=== PATIENT | male | born 1945 | race African-American/Black ===

== ENCOUNTER 2023-08-13 06:08 | Observation (INO) | payer OTHER, MEDICARE ==
[2023-08-13 06:48] LABS: BASO % 1.2 % (0-2.0); HEMATOCRIT 36.2 % (35.4-49); HEMOGLOBIN 11.9 GM/dL (11.7-16.9); LYMPH % 36.4 % (8-40); MCH 30.9 pg (25.7-33.7); MCHC 32.8 g/dl (32.0-35.9); MEAN PLT VOLUME 7.3 fl (7.5-11.1); MONO % 10.4 % (3.8-10.2); PLATELET COUNT 194 10^3/uL (134-434); RBC 3.85 M/mm3 (4.00-5.60); RDW 14.4 % (11.9-15.9)
[2023-08-13] MEDS ORDERED: FAMOTIDINE 20 MG/50 ML IVPB 20 MG/50 ML MG IVPB ONE (07:12)
[2023-08-13] MEDS ORDERED: ACETAMINOPHEN 1000 MG/100 ML BAG IVPB ONE (07:12)
[2023-08-13] MEDS ORDERED: MAG HYDROX/AL HYDROX/SIMETH -MYLANTA- ORAL SUSPENSION PO ONE (07:12)
[2023-08-13 07:13] LABS: POTASSIUM 4.7 mmol/L (3.5-5.1)
[2023-08-13 07:15] LABS: ALBUMIN 3.2 g/dl (3.4-5.0); BLOOD UREA NITROGEN 18.1 mg/dL (7-18); CALCIUM 8.3 mg/dL (8.5-10.1)
[2023-08-13] MEDS ORDERED: ONDANSETRON 4 MG/2 ML VIAL IVPUSH ONE (07:16)
[2023-08-13 07:19] LABS: CREATININE 1.1 mg/dL (0.55-1.3)
[2023-08-13 07:21] LABS: BILIRUBIN,TOTAL 0.4 mg/dL (0.2-1)
[2023-08-13] MEDS ORDERED: MAG HYDROX/AL HYDROX/SIMETH 30 ML UNIT-DOSE CUP ONE (07:21)
[2023-08-13] MEDS ORDERED: ACETAMINOPHEN INJECTION 100 ML IVPB ONE (07:21)
[2023-08-13] MEDS ORDERED: ONDANSETRON 4 MG/2 ML VIAL ONE (07:22)
[2023-08-13] MEDS ORDERED: FAMOTIDINE 10 MG/ML VIAL IVPB ONE (07:22)
[2023-08-13 07:24] LABS: N-TERMINAL BNP 262.2 pg/ml (5-450)
[2023-08-13 07:27] LABS: INR 1.07 (0.83-1.09); PROTHROMBIN TIME (PATIENT) 12.4 SEC (9.7-13.0)
[2023-08-13] MEDS ORDERED: PANTOPRAZOLE 40 MG TABLET PO SCH (11:45)
[2023-08-13] MEDS ORDERED: PANTOPRAZOLE 40 MG TABLET PO ONE (12:52)
[2023-08-13] MEDS ORDERED: CLOPIDOGREL BISULFATE 75 MG TABLET (FP) ONE (12:53)
[2023-08-13] MEDS ORDERED: metoPROLOL SUCCINATE 25 MG TAB.SR.24H (FP) PO ONE (12:53)
[2023-08-13] MEDS ORDERED: SERTRALINE HCL 50 MG TABLET (FP) ONE (12:53)
[2023-08-13] MEDS ORDERED: ASPIRIN 325 MG TABLET ONE (12:54)
[2023-08-13] MEDS: CLOPIDOGREL BISULFATE 75 MG TABLET (FP) PO SCH (13:11)
[2023-08-13] MEDS: SERTRALINE HCL 25 MG TABLET (FP) PO SCH (13:11)
[2023-08-13] MEDS: PANTOPRAZOLE 40 MG TABLET PO SCH (13:11)
[2023-08-13] MEDS: predniSONE 5 MG TABLET (UD) PO SCH ×2 (13:12→21:38)
[2023-08-13] MEDS: MEGESTROL ACETATE 40 MG TABLET PO SCH (13:12)
[2023-08-13] MEDS: metoPROLOL SUCCINATE 25 MG TAB.SR.24H (FP) PO SCH (13:12)
[2023-08-13] MEDS: ASPIRIN 325 MG ENTERIC COATED TABLET (FP) PO SCH (13:12)
[2023-08-13 15:56] VITALS: BMI 21.9
[2023-08-13] MEDS: SUCRALFATE 1 GM TABLET (FP) PO SCH ×3 (15:57→21:39)
[2023-08-13] MEDS ORDERED: INSULIN (NOVOLOG) ASPART 100 UNITS/ML 10ML VIAL ONE (16:46)
[2023-08-13] MEDS: INSULIN SLIDING SCALE (NOVOLOG) 1 VIAL SQ SCH ×2 (16:48→21:39)
[2023-08-13] MEDS: TIMOLOL 0.5% OPHTHALMIC SOL 5 ML BOTTLE OD SCH (21:40)
[2023-08-13] MEDS: DORZOLAMIDE 2% HCL OPHTHALMIC SOLUTION 10 ML BOTTLE OD SCH (21:40)
[2023-08-13] MEDS ORDERED: LATANOPROST 0.005% OPHTH SOLN 2.5ML BOTTLE OS SCH (22:00)
[2023-08-13] MEDS ORDERED: ROSUVASTATIN CA 10 MG TABLET PO SCH (22:00)
[2023-08-13] MEDS ORDERED: PATIENT'S OWN MEDICATION (NON-FORMULARY) (Netarsudil Mesylate [Rhopressa] 2.5 ML Drops) OS SCH (22:00)
[2023-08-13] MEDS ORDERED: PATIENT'S OWN MEDICATION (NON-FORMULARY) (Dorzolamide/Timolol/Pf [Dorzolamide-Timolol 2%-0 OD SCH (22:00)
[2023-08-13] MEDS: BISACODYL 5 MG TABLET.DR (FP) PO PRN (22:07)
[2023-08-14] MEDS: INSULIN SLIDING SCALE (NOVOLOG) 1 VIAL SQ SCH ×2 (06:30→12:02)
[2023-08-14 07:43] LABS: BASO % 0.5 % (0-2.0); EOS % 0.3 % (0-4.5); HEMATOCRIT 36.3 % (35.4-49); HEMOGLOBIN 11.6 GM/dL (11.7-16.9); MCH 30.3 pg (25.7-33.7); MEAN CELL VOLUME 94.6 fl (80-96); MEAN PLT VOLUME 7.6 fl (7.5-11.1); MONO % 8.3 % (3.8-10.2); NEUT % 63.9 % (42.8-82.8); PLATELET COUNT 190 10^3/uL (134-434); RBC 3.84 M/mm3 (4.00-5.60); RDW 14.4 % (11.9-15.9); WHITE BLOOD COUNT 6.6 K/mm3 (4.0-10.0)
[2023-08-14 08:03] LABS: POTASSIUM 4.5 mmol/L (3.5-5.1)
[2023-08-14 08:11] LABS: BLOOD UREA NITROGEN 17.5 mg/dL (7-18); CALCIUM 8.4 mg/dL (8.5-10.1); MAGNESIUM 2.5 mg/dL (1.8-2.4)
[2023-08-14 08:14] LABS: PHOSPHOROUS 2.8 mg/dL (2.5-4.9)
[2023-08-14 08:15] LABS: BILIRUBIN,TOTAL 0.5 mg/dL (0.2-1); TOT PROT 5.5 g/dl (6.4-8.2)
[2023-08-14] MEDS: SUCRALFATE 1 GM TABLET (FP) PO SCH ×2 (09:45→14:38)
[2023-08-14] MEDS: PANTOPRAZOLE 40 MG TABLET PO SCH (09:46)
[2023-08-14] MEDS: CLOPIDOGREL BISULFATE 75 MG TABLET (FP) PO SCH (09:46)
[2023-08-14] MEDS: predniSONE 5 MG TABLET (UD) PO SCH (09:47)
[2023-08-14] MEDS: BISACODYL 5 MG TABLET.DR (FP) PO PRN (09:47)
[2023-08-14] MEDS: metoPROLOL SUCCINATE 25 MG TAB.SR.24H (FP) PO SCH (09:47)
[2023-08-14] MEDS: SERTRALINE HCL 25 MG TABLET (FP) PO SCH (09:47)
[2023-08-14] MEDS: DORZOLAMIDE 2% HCL OPHTHALMIC SOLUTION 10 ML BOTTLE OD SCH (09:49)
[2023-08-14] MEDS: TIMOLOL 0.5% OPHTHALMIC SOL 5 ML BOTTLE OD SCH (09:49)
[2023-08-14] MEDS: MEGESTROL ACETATE 40 MG TABLET PO SCH (09:51)
[2023-08-14] MEDS: ASPIRIN 325 MG ENTERIC COATED TABLET (FP) PO SCH (09:51)
[2023-08-14] MEDS ORDERED: BISACODYL 10 MG SUPP.RECT PR ONE (10:00)
[2023-08-14 15:28] VITALS: BP 114/68; PULSE 72; RESP 18; TEMP 98.4
[2023-08-14] MEDS ORDERED: TIMOLOL 0.5% OPHTHALMIC SOL 5 ML BOTTLE OS SCH (22:00)
[2023-08-14] MEDS ORDERED: DORZOLAMIDE 2% HCL OPHTHALMIC SOLUTION 10 ML BOTTLE OS SCH (22:00)
== END 2023-08-14 18:51 | disposition home or self-care (01) ==
LOC: JER 06:08 → JERBED 09:52 → J4W 15:05
PROVIDERS: ADMIT Internal Medicine; ATTEND Internal Medicine
PROC: 3E033GC Introduction of Other Therapeutic Substance into Peripheral Vein, Percutaneous Approach (ICD-10-PCS; principal; 2023-08-13)
PROC: 3E033NZ Introduction of Analgesics, Hypnotics, Sedatives into Peripheral Vein, Percutaneous Approach (ICD-10-PCS; 2023-08-13)
DX: R00.2 Palpitations (principal); R07.89 Other chest pain; E05.90 Thyrotoxicosis, unspecified without thyrotoxic crisis or storm; R26.2 Difficulty in walking, not elsewhere classified; M06.9 Rheumatoid arthritis, unspecified; Z89.422 Acquired absence of other left toe(s); R63.4 Abnormal weight loss; K21.9 Gastro-esophageal reflux disease without esophagitis; C91.11 Chronic lymphocytic leukemia of B-cell type in remission; E78.5 Hyperlipidemia, unspecified; E11.9 Type 2 diabetes mellitus without complications; I73.9 Peripheral vascular disease, unspecified; Z95.0 Presence of cardiac pacemaker; Z95.5 Presence of coronary angioplasty implant and graft; M86.9 Osteomyelitis, unspecified; H40.9 Unspecified glaucoma; M51.9 Unspecified thoracic, thoracolumbar and lumbosacral intervertebral disc disorder
CPT/HCPCS: 0241U-QW; 36415; 71045-TC-FY; 71275-TC; 80053; 82962; 83735; 83880; 84100; 84439; 84443; 84480; 84484; 85025; 85610; 85730; 93005; 93010; 93306-TC; 96365; 96375; 99285-25; G0378; J8999; Q9967